=== PATIENT | female | born 1950 | race Caucasian/White ===

== ENCOUNTER → 2018-04-16 | Outpatient (CLI) | payer MEDICARE, OTHER ==
[~2018-04-16] MED LIST: CALCIUM-500 5001 CTB PO; CARAFATE1 GM PO; CELEXA 20MG20 MG/TAB PO; CELEXA10 MG PO; CITALOPRAM10 MG PO; CRESTOR; CRESTOR 10MG10 MG PO; DESYREL 100MG100 MG PO; DICLOFENAC SOD2.5 ML TOP; DULERA1 AR1 IH; ESZOPICOLONE; LUNESTA3 MG PO; LYRICA50 MG PO; MASON NATURAL1200 MG PO; MELATONIN5 M1 PO; MIRAPEX 0.125MG; MIRAPEX 1MG PO; MIRAPEX1 MG PO; NEURONTIN300 MG/CAP PO; NEXIUM PO; NEXIUM40 MG PO; NUVIGIL250 MG PO; PREGABALIN; ROXICODONE 55 MG/TAB PO; SINGULAIR; SINGULAIR10 MG PO; ULTRAM 50MG TAB50 MG; ULTRAM100 MG PO; VYTORIN; VYTORIN 10 MG-21 TAB PO
== END ==
LOC: MC.RAD 13:01
DX: Z12.31 Encounter for screening mammogram for malignant neoplasm of breast (principal)

== ENCOUNTER → 2018-04-24 | Outpatient (CLI) | payer MEDICARE, OTHER | LOC: COL.RAD 13:29 | DX: K44.9 Diaphragmatic hernia without obstruction or gangrene (principal); N39.0 Urinary tract infection, site not specified; N20.0 Calculus of kidney; M51.36 Other intervertebral disc degeneration, lumbar region ==

== ENCOUNTER → 2020-06-21 | Outpatient (CLI) | payer MEDICARE, OTHER | LOC: MC.RAD 10:05 | DX: Z12.31 Encounter for screening mammogram for malignant neoplasm of breast (principal) ==

== ENCOUNTER → 2020-11-28 | Outpatient (CLI) | payer OTHER | LOC: COL.RAD 07:31 | DX: M25.512 Pain in left shoulder (principal) | CPT/HCPCS: J3301; Q9967 ==

== ENCOUNTER → 2021-07-10 | Outpatient (CLI) | payer MEDICARE | LOC: COL.LAB 13:40 | DX: R05 Cough (principal) ==

== ENCOUNTER 2021-10-23 09:22 | Day surgery (SDC) | payer MEDICARE ==
[~2021-10-23] VITALS: Ht 165.1 cm; Wt 86.6 kg
[2021-10-23] MEDS ORDERED: CELEXA40 MG PO (09:52)
[2021-10-23] MEDS ORDERED: SINGULAIR 110 MG/TAB PO (09:52)
[2021-10-23] MEDS ORDERED: ATARAX50 MG PO (09:52)
[2021-10-23] MEDS ORDERED: DESYREL 100MG100 MG PO (09:53)
[2021-10-23] MEDS ORDERED: CRESTOR20 MG PO (09:53)
[2021-10-23] MEDS ORDERED: PULMICORT0.5 MG/2 M IH (09:54)
[2021-10-23] MEDS ORDERED: MIRAPEX 1MG PO (09:54)
[2021-10-23 10:17] VITALS: BP 121/61; PULSE 75; TEMP 98.3
[2021-10-23 10:50] VITALS: BP 112/77; PULSE 69; TEMP 97.8
--- NOTE | 2021-10-23 10:50 | NUR ---
pt returned to [facility] via cart from endo room, walked to chair is alert and orientated. snack given, call light in reach, no c/o
[2021-10-23 11:05] VITALS: BP 111/68; PULSE 69
[2021-10-23 11:20] VITALS: BP 111/58; PULSE 74
--- NOTE | 2021-10-23 11:20 | NUR ---
iv d'cd intact, pt up in room dressed. Dr into see pt
[2021-10-23 11:35] VITALS: BP 109/58; PULSE 67
--- NOTE | 2021-10-23 11:40 | NUR ---
reviewed discharge inst. with pt on activity, followup and precautions with verbal understanding. discharged via w/c to car with son
== END 2021-10-23 11:40 | disposition home or self-care (01) ==
LOC: SDCO 09:22
DX: Z12.11 Encounter for screening for malignant neoplasm of colon (principal); K64.0 First degree hemorrhoids; E78.5 Hyperlipidemia, unspecified; D64.9 Anemia, unspecified; G47.33 Obstructive sleep apnea (adult) (pediatric); K21.9 Gastro-esophageal reflux disease without esophagitis; M19.90 Unspecified osteoarthritis, unspecified site; M79.7 Fibromyalgia; G47.00 Insomnia, unspecified; G25.81 Restless legs syndrome; F32.A Depression, unspecified; Z79.899 Other long term (current) drug therapy; Z99.89 Dependence on other enabling machines and devices; Z90.710 Acquired absence of both cervix and uterus
CPT/HCPCS: J2704; J7030

== ENCOUNTER → 2023-10-31 | Outpatient (CLI) | payer MEDICARE ==
[~2023-10-31] MED LIST changes: +ATARAX50 MG PO; +CELEXA40 MG PO; +CRESTOR20 MG PO; +PULMICORT0.5 MG/2 M IH; +SINGULAIR 110 MG/TAB PO
== END ==
LOC: MC.RAD 12:34
DX: Z12.31 Encounter for screening mammogram for malignant neoplasm of breast (principal)

== ENCOUNTER → 2023-12-10 | Outpatient (CLI) | payer MEDICARE | LOC: COL.RAD 09:20 | DX: R91.1 Solitary pulmonary nodule (principal); J98.11 Atelectasis; K44.9 Diaphragmatic hernia without obstruction or gangrene ==